=== PATIENT | female | born 1990 | race Caucasian/White ===

== ENCOUNTER 2018-06-02 18:30 | Outpatient (REF) | payer SELFPAY ==
[2018-06-02 19:56] LABS: *AMPHETAMINES SCREEN URINE Negative (Negative); *BARBITURATES SCREEN URINE Negative (Negative); *BENZODIAZEPINES SCREEN URINE Negative (Negative); Cannabinoids THC Negative (Negative); Cocaine Screen,Urine Negative (Negative); METHADONE URINE SCREEN Negative (Negative); OPIATES URINE SCREEN Negative (Negative)
[2018-06-02 19:57] LABS: Tricyclic Antidepressants Negative (Negative)
[2018-06-05 13:38] LABS: Chlamydia Result Negative; GC Result Negative
[2018-06-08 11:03] LABS: Buprenorphine Negative; Norbuprenorphine Negative
== END 2018-06-02 18:50 ==
LOC: LBN 18:30
PROVIDERS: PCP Nurse Practitioner Family; Visit Provider Nurse Practitioner
DX: Z34.91 Encounter for supervision of normal pregnancy, unspecified, first trimester (principal); Z11.3 Encounter for screening for infections with a predominantly sexual mode of transmission
CPT/HCPCS: 80307; 87491; 87591; 87086

== ENCOUNTER 2018-07-13 10:49 | Outpatient (CLI) | payer MEDICAID, SELFPAY ==
[2018-07-13 11:24] LABS: Abs Immature Grans 0.06 k/cumm (0.0-0.09); Absolute Basophil Count 0.03 k/cumm (0.0-0.2); Absolute Eosinophil Count 0.28 k/cumm (0.0-0.7); Absolute Lymphocyte Count 3.04 k/cumm (1.2-3.4); Absolute Monocyte Count 0.95 k/cumm (0.11-0.7); Absolute Neutrophil Count 10.98 k/cumm (1.2-6.7); Basophils % 0.2; Eosinophils % 1.8; HCT 37.5 % (36.0-46.0); HGB 12.9 g/dL (12.0-15.5); Immature Grans % 0.4; Lymphocytes % 19.8; Mean Corp. HGB Concentration 34.4 g/dL (32.0-36.0); Mean Corpuscular Hemoglobin 30.3 pg (27.0-33.0); Monocytes % 6.2; Neutrophils % 71.6; Platelet Count 221 x1000/uL (130-400); RBC 4.26 m/cumm (4.00-5.20); RBC Distribution Width 13.2 % (11.7-14.6); White Blood Cell Count 15.33 k/cumm (4.4-10.8)
[2018-07-13 11:54] LABS: Glucose,1 Hr (Glucola) 86 mg/dL (80-140)
[2018-07-13 12:34] LABS: ALT 19 U/L (12-78); AST 14 U/L (15-37); Albumin 3.2 g/dL (3.4-5.0); Alkaline Phosphatase 53 U/L (46-116); Bilirubin, Direct 0.08 mg/dL (0.00-0.20); Bilirubin, Total 0.2 mg/dL (0.2-1.0); TSH (W/Ref FT4) 1.87 uIU/mL (0.358-3.74); Total Protein 6.3 g/dL (6.4-8.2)
[2018-07-14 09:55] LABS: HIV-1/2 Ag & Ab Screen Negative (NEGAT); Hepatitis B Surface Ag Negative (NEGAT)
[2018-07-14 11:34] LABS: Rubella IgG Ab (UVM) Positive; Syphilis Serology (RPR) Negative (Negative); Varicella IgG Antibody Positive
[2018-07-14 15:14] LABS: Hepatitis C Ab w Rflx HCV PCR Negative (NEGAT)
== END 2018-07-13 11:09 ==
PROVIDERS: PCP Nurse Practitioner Family; Visit Provider Nurse Practitioner
DX: Z34.91 Encounter for supervision of normal pregnancy, unspecified, first trimester (principal); Z11.59 Encounter for screening for other viral diseases; Z01.84 Encounter for antibody response examination; Z11.4 Encounter for screening for human immunodeficiency virus [HIV]; Z11.3 Encounter for screening for infections with a predominantly sexual mode of transmission
CPT/HCPCS: 36415; 80055; 80076; 82950; 86787; 86803; 86850; 86900; 86901; 87340; 87389; 84443; 86592; 86762

== ENCOUNTER 2018-08-21 00:57 | Outpatient (CLI) | payer MEDICAID, SELFPAY ==
--- NOTE | 2018-08-21 14:15 | DI.US_ITS ---
Many abnormalities cannot be diagnosed. A normal exam does not exclude a congenital anomaly. Radiology No. LMP: Exam Date: 08/21/18 [facility] wks days on EDC ([facility]) 12/11/18 Confirmed: HISTORY: SURVEY, .Z34.90 PREDICTED GESTATIONAL AGE NUMBER 19.5 weeks with a range of 18.5 week to 20.5 weeks. 1 Determined by__X_1STUS___LMP___HISTORY Info. pertaining to fetus # PLACENTA PRESENTATION Grade 0-1 Cephalic___ Anterior_X__Posterior___ Breech____ Right Left Transverse(head right___ Fundal___Low-lying___Previa___ Transverse(head left___ Varying___X___ BIOMETRY AMNIOTIC FLUID BPD: 48 mm 20.3 weeks Normal HC: 182 mm 20.4 weeks AC: 152 mm 20.3 weeks FL: 32 mm 19.6 weeks AMNIOTIC FLUID INDEX >26 WK CRL: mm weeks Cisterna Magna: 4 mm CI: 0.8 RUQ: LUQ Cerebellum: 2.1 cm EFW: 347 grams Percentile RLQ: LLQ Total: cms Composite AGE= 20.2 wks EDC by US___01/16/19 BIOPHYSICAL PROFILE ANATOMY IDENTIFIED SCORE 0/2 Heart: 4-Chamber_NS__Rate:BPM__155___ LVOT: NS RVOT:___NS Amniotic Fluid(>2cms)____ Stomach:____X___ Kidneys:___X____ Respirations (>30 secs) Bladder: X_ Post. Fossa:____X Body Flex/Extension 3 vessel cord:___X____Ventricles: X cord insertion:___X__ Lips:__NS WELL__ Extremity Flex/Extension spinal morphology:___X Nose:MS WELL Total Score= Palate:____X___ NS=not seen There is a single living intrauterine gestation. Estimated sonographic age is 20 weeks 2 days. The placenta is anterior without evidence of previa. anatomic evaluation was performed and is unremarkable. The four chamber heart and ventricular outflow tract images cannot adequately be obtained. In addition, the facial features were not well seen. The patient is scheduled to return on 08/29/18 to complete anatomic imaging of the heart and face. Amniotic fluid appears within normal limits. The fetus was in varying positions during the examination. heart rate is 155 beats per minute. IMPRESSION: Single living intrauterine gestation. Estimated sonographic age is 20 weeks 2 days. The patient will return 08/29/18 for completion of the anatomic evaluation with complete imaging of the heart and face.
[2018-08-23 15:53] LABS: AFP 34.8 ng/mL; Calculated age at EDD 30 years; Cigarette smoking status non-smoker; GA used in risk estimate Scan estimate; INHIBIN 282 pg/mL; IVF Pregnancy No; Initial or repeat testing Initial testing; Insulin dependent diabetes No; Maternal Weight 263 lbs; Number of Fetuses 1; Physician Phone Number 802-748-7300; Prev Down(T21)/Trisomy Pregnan No; Prev Pregnancy w/NTD No; RECOMMENDED FOLLOW UP None.; Results Summary Normal risk; hCG, TOTAL 10.5 IU/mL; hCG, TOTAL MoM 0.73 MoM; uE3 1.24 ng/mL; uE3 MoM 0.82 MoM
== END 2018-08-21 01:17 ==
PROVIDERS: Advanced Practice Midwife; PCP Nurse Practitioner Family; Visit Provider Obstetrics & Gynecology
DX: Z34.92 Encounter for supervision of normal pregnancy, unspecified, second trimester (principal); Z36.89 Encounter for other specified antenatal screening
CPT/HCPCS: 36415; 76805; 81511

== ENCOUNTER 2018-08-29 00:27 | Outpatient (CLI) | payer MEDICAID, SELFPAY ==
--- NOTE | 2018-08-29 09:09 | DI.US_ITS ---
Many abnormalities cannot be diagnosed. A normal exam does not exclude a congenital anomaly. Radiology No. LMP: Exam Date: 08/29/18 [facility] wks days on EDC ([facility]) Confirmed: HISTORY: F/U TO COMPLETE SURVEY AND VIEW FACIAL AND CARDIAC PREDICTED GESTATIONAL AGE NUMBER 2 3 Multiple weeks with a range of week to weeks. 1 Determined by___1STUS___LMP___HISTORY Info. pertaining to fetus # PLACENTA PRESENTATION Grade 0-1 Cephalic___ Anterior__X_Posterior___ Breech____ Right Left Transverse(head right___ Fundal___Low-lying___Previa___ Transverse(head left___ Varying BIOMETRY AMNIOTIC FLUID BPD: mm weeks Normal HC: mm weeks AC: mm weeks FL: mm weeks AMNIOTIC FLUID INDEX >26 WK CRL: mm weeks Cisterna Magna: mm CI: RUQ: LUQ Cerebellum: cm EFW: grams Percentile RLQ: LLQ Total: cms Composite AGE= wks EDC by US BIOPHYSICAL PROFILE ANATOMY IDENTIFIED SCORE 0/2 Heart: 4-Chamber_X__Rate:BPM___153__ LVOT:____X RVOT:___X Amniotic Fluid(>2cms)____ Stomach: Kidneys: Respirations (>30 secs) Bladder: Post. Fossa: Body Flex/Extension 3 vessel cord: Ventricles: cord insertion: Lips:___X_ Extremity Flex/Extension spinal morphology: Nose:X Total Score= Palate: X__ NS=not seen There is a single intrauterine gestation. The fetus is in the cephalic presentation. heart rate is 153 beats per minute. The lips, nose and palate are grossly unremarkable. There is limited visualization of the lower lip. There is a normal appearing 4 chamber heart and left and right ventricular outflow tract. Placenta is anterior without evidence of previa.
== END 2018-08-29 00:47 ==
PROVIDERS: PCP Nurse Practitioner Family; Visit Provider Obstetrics & Gynecology
DX: Z34.92 Encounter for supervision of normal pregnancy, unspecified, second trimester (principal); Z36.2 Encounter for other antenatal screening follow-up
CPT/HCPCS: 76815

== ENCOUNTER 2018-10-11 14:30 | Outpatient (CLI) | payer MEDICAID, SELFPAY | END 2018-10-11 14:50 | PROVIDERS: PCP Nurse Practitioner Family; Visit Provider Advanced Practice Midwife | DX: O36.8130 Decreased fetal movements, third trimester, not applicable or unspecified (principal); Z3A.27 27 weeks gestation of pregnancy | CPT/HCPCS: 59025 ==

== ENCOUNTER 2018-10-15 12:23 | Observation (INO) | payer MEDICAID, SELFPAY ==
[2018-10-15 12:44] LABS: ALT 21 U/L (12-78); AST 13 U/L (15-37); Albumin 2.9 g/dL (3.4-5.0); Alkaline Phosphatase 78 U/L (46-116); Bilirubin, Total 0.2 mg/dL (0.2-1.0); Total Protein 6.4 g/dL (6.4-8.2); Uric Acid 5.6 mg/dL (2.6-6.0)
[2018-10-15 12:47] LABS: Bilirubin, Direct < 0.05 mg/dL (0.00-0.20)
[2018-10-15 14:49] LABS: PROTEIN 14.9 mg/dL; Prot/Crea Ur Ratio 0.11
[2018-10-15 14:49] LABS: HCT 36.1 % (36.0-46.0); HGB 12.1 g/dL (12.0-15.5); Mean Corp. HGB Concentration 33.5 g/dL (32.0-36.0); Mean Corpuscular Volume 89.4 fL (80-95); Platelet Count 210 x1000/uL (130-400); RBC 4.04 m/cumm (4.00-5.20); RBC Distribution Width 13.8 % (11.7-14.6); White Blood Cell Count 19.68 k/cumm (4.4-10.8)
== END 2018-10-15 14:59 | disposition home or self-care (01) ==
PROVIDERS: Admitting Provider Advanced Practice Midwife; PCP Nurse Practitioner Family; Visit Provider Advanced Practice Midwife
DX: O12.02 Gestational edema, second trimester (principal); O99.332 Smoking (tobacco) complicating pregnancy, second trimester; F17.210 Nicotine dependence, cigarettes, uncomplicated; O99.342 Other mental disorders complicating pregnancy, second trimester; F99 Mental disorder, not otherwise specified; O99.612 Diseases of the digestive system complicating pregnancy, second trimester; O99.512 Diseases of the respiratory system complicating pregnancy, second trimester; Z3A.27 27 weeks gestation of pregnancy; F32.9 Major depressive disorder, single episode, unspecified; G47.30 Sleep apnea, unspecified; O34.211 Maternal care for low transverse scar from previous cesarean delivery
CPT/HCPCS: 59025; 36415; 80076; 85027; 82565; 84156; 84550; G0378

== ENCOUNTER 2018-10-19 09:17 | Outpatient (CLI) | payer MEDICAID, SELFPAY ==
[2018-10-19 09:49] LABS: HCT 37.1 % (36.0-46.0); HGB 12.1 g/dL (12.0-15.5); Mean Corp. HGB Concentration 32.6 g/dL (32.0-36.0); Mean Corpuscular Hemoglobin 29.2 pg (27.0-33.0); Mean Corpuscular Volume 89.6 fL (80-95); Mean Platelet Volume 11.4 fL (8.0-11.0); Platelet Count 210 x1000/uL (130-400); RBC 4.14 m/cumm (4.00-5.20); RBC Distribution Width 14.1 % (11.7-14.6); White Blood Cell Count 18.27 k/cumm (4.4-10.8)
[2018-10-19 09:58] LABS: Glucose,1 Hr (Glucola) 129 mg/dL (80-140)
== END 2018-10-19 09:37 ==
PROVIDERS: PCP Nurse Practitioner Family; Visit Provider Advanced Practice Midwife
DX: Z34.93 Encounter for supervision of normal pregnancy, unspecified, third trimester (principal)
CPT/HCPCS: 36415; 82950; 85027

== ENCOUNTER 2018-10-27 09:43 | Outpatient (CLI) | payer MEDICAID, SELFPAY ==
[2018-10-27 10:12] LABS: HCT 36.8 % (36.0-46.0); HGB 12.2 g/dL (12.0-15.5); Mean Corp. HGB Concentration 33.2 g/dL (32.0-36.0); Mean Corpuscular Hemoglobin 29.6 pg (27.0-33.0); Mean Corpuscular Volume 89.3 fL (80-95); Mean Platelet Volume 10.8 fL (8.0-11.0); Platelet Count 233 x1000/uL (130-400); RBC 4.12 m/cumm (4.00-5.20); RBC Distribution Width 14.1 % (11.7-14.6)
[2018-10-27 11:19] LABS: ALT 26 U/L (12-78); AST 14 U/L (15-37); Albumin 2.9 g/dL (3.4-5.0); Alkaline Phosphatase 82 U/L (46-116); Bilirubin, Direct 0.06 mg/dL (0.00-0.20); Bilirubin, Total 0.2 mg/dL (0.2-1.0); CREATININE 0.72 mg/dL (0.55-1.02); Total Protein 6.1 g/dL (6.4-8.2); Uric Acid 5.8 mg/dL (2.6-6.0)
[2018-10-27 11:21] LABS: COMMENT (LAB VIEW ONLY) 112.07 mg/dL; PROTEIN 15.7 mg/dL; Prot/Crea Ur Ratio 0.14
== END 2018-10-27 10:03 ==
LOC: LBN 09:44 → LBO 09:53
PROVIDERS: PCP Nurse Practitioner Family; Visit Provider Advanced Practice Midwife
DX: O12.03 Gestational edema, third trimester (principal); R60.9 Edema, unspecified; Z34.93 Encounter for supervision of normal pregnancy, unspecified, third trimester
CPT/HCPCS: 36415; 80076; 85027; 82565; 84156; 84550

== ENCOUNTER 2018-11-11 07:00 | Outpatient (REF) | payer MEDICAID, SELFPAY ==
[2018-11-13 05:16] LABS: PROTEIN 13.1 mg/dL (0.0-11.9)
[2018-11-13 05:22] LABS: TOTAL PROTEIN,URINE TIMED 255.5 mg/24hr (0.0-149.1); Total Volume 1950 ml
== END 2018-11-11 07:20 ==
LOC: LBN 07:00
PROVIDERS: PCP Nurse Practitioner Family; Visit Provider Obstetrics & Gynecology
DX: O13.9 Gestational [pregnancy-induced] hypertension without significant proteinuria, unspecified trimester (principal)
CPT/HCPCS: 81050; 84155

== ENCOUNTER 2018-11-14 00:06 | Outpatient (CLI) | payer MEDICAID, SELFPAY ==
--- NOTE | 2018-11-14 08:23 | DI.US_ITS ---
SYMPTOMS/DIAGNOSIS: HX OF MACROSOMIA, SIZE INCONSISTENT WITH DATES, O26.849 OB ULTRASOUND: Comparison is made with [id number] and 85Onx75. The fetus is in transverse position with the head toward the maternal left. The placenta is anterior and grade II. The biometric measurements correspond to 34 weeks 6 days which is measuring 3 weeks greater than predicted gestational age. The estimated weight is 2536 grams which is greater than the 99th percentile. The amniotic fluid index is 22.5 cm. IMPRESSION: size and weight is above the normal limits for gestational age. Predicted Gestational Age: Indication/History: 31+6 Wks Range: 30+6 Wks to 32+6 Wks Prior US done on: Determined by: First US X LMP History EDC by prior US: 01/10/19 For multiple gestations: Baby PLACENTA: Grade: II Location: Anterior X Posterior PRESENTATION: RT LT LOW LYING PREVIA Cephalic Trans X (Head LT X ) Varied Breech BIOMETRY: Anatomy Identified: BPD: 85 mm 34+1 wks 4 chamber Heart Heart Rate 141 BPM HC: 320 mm 36+0 wks LVOT Post Fossa AC: 316 mm 35+4 wks RVOT Ventricles FL: 66 mm 33+6 wks Stomach Nose Bladder Lips Cisterna Magna: mm CI: 77 Kidneys Palate Cerebellum: mm 3 vessel cord Spine EFW: 2563 grms off charts % Cord Insertion NS= not seen Composite Age (US) 34+6 wks Many abnormalities cannot be diagnosed. A normal exam does not exclude congenital abnormality. EDC by US 12/20/18 Amniotic Fluid Index: Normal COMMENTS: RUQ: 6.98 LUQ: 6.37 RLQ: 5.30 LLQ: 3.84 Total: 22.5 cm Biophysical Profile: Score 0/2 BIPIN (>2cm) Respirations (>30 sec) Body flexion/extension Extremity flexion/extension TOTAL SCORE Measuring 3 wks ahead. Off charts in weight 2563 grams, 5 lbs, 10 oz.
== END 2018-11-14 00:26 ==
PROVIDERS: PCP Nurse Practitioner Family; Visit Provider Advanced Practice Midwife
DX: O26.843 Uterine size-date discrepancy, third trimester (principal); Z87.59 Personal history of other complications of pregnancy, childbirth and the puerperium
CPT/HCPCS: 76816

== ENCOUNTER 2018-12-08 09:52 | Outpatient (REF) | payer MEDICAID, SELFPAY | END 2018-12-08 10:12 | LOC: LBN 09:52 | PROVIDERS: PCP Nurse Practitioner Family; Visit Provider Obstetrics & Gynecology | DX: R35.0 Frequency of micturition (principal); Z34.90 Encounter for supervision of normal pregnancy, unspecified, unspecified trimester | CPT/HCPCS: 87081; 87086 ==

== ENCOUNTER 2018-12-15 01:34 | Outpatient (CLI) | payer MEDICAID, SELFPAY ==
--- NOTE | 2018-12-15 08:40 | DI.US_ITS ---
SYMPTOM/DIAGNOSIS: EFW, HISTORY OF MACROSOMIA O09.299 OBSTETRICAL ULTRASOUND: Routine examination was performed. There is a single living intrauterine gestation. Estimated sonographic age is 39 weeks 2 days. The fetus lies with the head to the right. heart rate is 135 BPM. A complete anatomic evaluation was not performed at this time. Estimated weight is 4036 grams which is above the 95th percentile Amniotic fluid index is 23.8 cm Visually the amniotic fluid appears within normal limits. The placenta is anterior without evidence of previa. IMPRESSION: Single living intrauterine gestation. Estimated gestational age is 39 weeks 2 days. Please see the above discussion for complete details. Predicted Gestational Age: Indication/History: 36 +2 Wks Range: 35 +2 to 37 +2 Prior US done on: 11/14/18 Determined by: XX First US LMP History EDC by prior US: 12/20/18 For multiple gestations: Baby PLACENTA: Grade: II Location: XX Anterior Posterior PRESENTATION: RT LT LOW LYING PREVIA Cephalic Trans XX (Head RT ) Varied Breech BIOMETRY: Anatomy Identified: BPD: 94 mm 38 +3 wks 4 chamber Heart Heart Rate 135 BPM HC: 339 mm 39 +0 wks LVOT Post Fossa AC: 379 mm 41 +6 wks RVOT Ventricles FL: 74 mm 37 +6 wks Stomach XX Nose Bladder XX Lips Cisterna Magna: mm CI: 83 Kidneys Palate Cerebellum: mm 3 vessel cord Spine EFW: 4036 gms % OFF CHARTS Cord Insertion NS= not seen Composite Age (US) 39 +2 wks Many abnormalities cannot be diagnosed. A normal exam does not exclude congenital abnormality. EDC by US 12/20/18 Amniotic Fluid Index: UPPER LIMITS Normal COMMENTS: RUQ: 7.43 LUQ: 3.08 RLQ: 4.14 LLQ: 9.11 Total: 23.8 cm Biophysical Profile: Score 0/2 BIPIN (>2cm) Respirations (>30 sec) Body flexion/extension Extremity flexion/extension TOTAL SCORE
== END 2018-12-15 01:54 ==
PROVIDERS: PCP Nurse Practitioner Family; Visit Provider Obstetrics & Gynecology
DX: O09.293 Supervision of pregnancy with other poor reproductive or obstetric history, third trimester (principal); Z36.88 Encounter for antenatal screening for fetal macrosomia; Z34.93 Encounter for supervision of normal pregnancy, unspecified, third trimester
CPT/HCPCS: 80307; 76805

== ENCOUNTER 2018-12-15 14:24 | Outpatient (REF) | payer MEDICAID, SELFPAY ==
[2018-12-15 15:20] LABS: *AMPHETAMINES SCREEN URINE Negative (Negative); *BARBITURATES SCREEN URINE Negative (Negative); *BENZODIAZEPINES SCREEN URINE Negative (Negative); Cannabinoids THC Negative (Negative); Cocaine Screen,Urine Negative (Negative); METHADONE URINE SCREEN Negative (Negative); OPIATES URINE SCREEN Negative (Negative)
[2018-12-15 15:31] LABS: Tricyclic Antidepressants Negative (Negative)
[2018-12-20 11:35] LABS: Buprenorphine Negative; Norbuprenorphine Negative
== END 2018-12-15 14:44 ==
LOC: LBN 14:24
PROVIDERS: PCP Nurse Practitioner Family; Visit Provider Obstetrics & Gynecology
DX: Z34.93 Encounter for supervision of normal pregnancy, unspecified, third trimester (principal)
CPT/HCPCS: 80307

== ENCOUNTER 2018-12-24 02:12 | Outpatient (CLI) | payer MEDICAID, SELFPAY ==
[2018-12-24 10:19] LABS: Absolute Basophil Count 0.03 k/cumm (0.0-0.2); Absolute Eosinophil Count 0.21 k/cumm (0.0-0.7); Absolute Monocyte Count 0.94 k/cumm (0.11-0.7); Absolute Neutrophil Count 12.71 k/cumm (1.2-6.7); Basophils % 0.2; Eosinophils % 1.2; HCT 37.1 % (36.0-46.0); HGB 12.1 g/dL (12.0-15.5); Immature Grans % 0.6; Lymphocytes % 18.2; Mean Corp. HGB Concentration 32.6 g/dL (32.0-36.0); Mean Corpuscular Hemoglobin 29.2 pg (27.0-33.0); Mean Corpuscular Volume 89.6 fL (80-95); Mean Platelet Volume 11.1 fL (8.0-11.0); Monocytes % 5.5; Neutrophils % 74.3; Platelet Count 302 x1000/uL (130-400); RBC 4.14 m/cumm (4.00-5.20); RBC Distribution Width 14.5 % (11.7-14.6); White Blood Cell Count 17.11 k/cumm (4.4-10.8)
[2018-12-24 10:20] LABS: Absolute Lymphocyte Count 3.11 k/cumm (1.2-3.4)
[2018-12-24 10:50] LABS: ALT 30 U/L (12-78); AST 21 U/L (15-37); Albumin 2.7 g/dL (3.4-5.0); Alkaline Phosphatase 140 U/L (46-116); BUN 6 mg/dL (7-18); Bilirubin, Total 0.3 mg/dL (0.2-1.0); CREATININE 0.73 mg/dL (0.55-1.02); Calcium 9.1 mg/dL (8.5-10.1); Chloride 104 mmol/L (98-107); Glucose 144 mg/dL (70-100); Potassium 3.9 mmol/L (3.5-5.1); Sodium 140 mmol/L (136-145)
== END 2018-12-24 02:32 ==
PROVIDERS: PCP Nurse Practitioner Family; Visit Provider Obstetrics & Gynecology
DX: O13.9 Gestational [pregnancy-induced] hypertension without significant proteinuria, unspecified trimester (principal); Z34.90 Encounter for supervision of normal pregnancy, unspecified, unspecified trimester
CPT/HCPCS: 36415; 80053; 81050; 84155; 85025

== ENCOUNTER 2018-12-24 10:03 | Outpatient (CLI) | payer MEDICAID, SELFPAY | END 2018-12-24 10:23 | PROVIDERS: PCP Nurse Practitioner Family; Visit Provider Obstetrics & Gynecology | DX: O13.3 Gestational [pregnancy-induced] hypertension without significant proteinuria, third trimester (principal); Z3A.37 37 weeks gestation of pregnancy | CPT/HCPCS: 36415; 80053; 59025; 81050; 84155; 85025 ==

== ENCOUNTER 2018-12-24 10:33 | Outpatient (REF) | payer MEDICAID, SELFPAY ==
[2018-12-24 11:22] LABS: Total Volume 2700 ml
== END 2018-12-24 10:53 ==
LOC: LBN 10:33
PROVIDERS: PCP Nurse Practitioner Family; Visit Provider Obstetrics & Gynecology
DX: Z34.90 Encounter for supervision of normal pregnancy, unspecified, unspecified trimester (principal); O13.9 Gestational [pregnancy-induced] hypertension without significant proteinuria, unspecified trimester
CPT/HCPCS: 81050; 84155

== ENCOUNTER 2018-12-26 13:33 | Outpatient (CLI) | payer MEDICAID, SELFPAY | END 2018-12-26 13:53 | PROVIDERS: PCP Nurse Practitioner Family; Visit Provider Obstetrics & Gynecology | DX: O34.219 Maternal care for unspecified type scar from previous cesarean delivery (principal); Z01.818 Encounter for other preprocedural examination ==

== ENCOUNTER 2018-12-26 15:03 | Outpatient (CLI) | payer MEDICAID, SELFPAY ==
[2018-12-26 15:29] LABS: HCT 37.7 % (36.0-46.0); HGB 12.2 g/dL (12.0-15.5); Mean Corp. HGB Concentration 32.4 g/dL (32.0-36.0); Mean Corpuscular Hemoglobin 28.8 pg (27.0-33.0); Mean Corpuscular Volume 88.9 fL (80-95); Mean Platelet Volume 10.7 fL (8.0-11.0); Platelet Count 298 x1000/uL (130-400); RBC 4.24 m/cumm (4.00-5.20); RBC Distribution Width 14.5 % (11.7-14.6); White Blood Cell Count 19.39 k/cumm (4.4-10.8)
== END 2018-12-26 15:23 ==
PROVIDERS: PCP Nurse Practitioner Family; Visit Provider Obstetrics & Gynecology
DX: Z01.818 Encounter for other preprocedural examination (principal); O34.219 Maternal care for unspecified type scar from previous cesarean delivery; Z01.812 Encounter for preprocedural laboratory examination
CPT/HCPCS: 36415; 85027; 86850; 86900; 86901

== ENCOUNTER 2018-12-27 06:17 | Inpatient (IN) | payer MEDICAID, SELFPAY ==
--- NOTE | 2018-12-26 12:52 | W.PM.HP.N ---
Assessment and Plan (1) Preeclampsia: Current visit: Yes Status: Acute (2) Term : Current visit: Yes Status: Acute meets criteria for preeclampsia >37 weeks BP trending upward +# edema LGA Plan RCS R/B/A reviewed consents signed History of Present Illness Chief Complaint: preeclampsia Narrative: 30 37.4 elevated BP edema and 24 urine protein 337 plan for RCS LGA Review of Systems Review of Systems All systems reviewed & are unremarkable except as noted in HPI and below PFSH Medical History RAJ (obstructive sleep apnea) (Chronic) History of macrosomia in infant in prior , currently (Acute) BMI 38.0-38.9,adult (Acute) PCOS (polycystic ovarian syndrome) (Chronic) Surgical History History of delivery, currently (Acute) Family History Mother Neoplasm Asthma Father No problems noted. Sister Depression Asthma Brother Depression Grandfather Personal history of malignant neoplasm Grandfather Emphysema lung Grandmother Personal history of malignant neoplasm Depression Grandmother No problems noted. Son No problems noted. Daughter No problems noted. FAMILY HISTORY Polycystic ovaries Social History Smoking/Tobacco Use Status: Former Tobacco Use Alcohol Intake: never Drug use: Never Household members: spouse, children and other Details: Kolby 11 years old, Carrielle years old Number of Children: 1 Do you feel safe in your relationship?: Yes History History 3 Para 1 Hx # Term Pregnancies 1 Multiple births 0 Hx # Pregnancies 0 Ectopic pregnancies 0 AB induced 0 Hx Number of Living Children 1 AB spontaneous 1 Past Pregnancies Del. Date GA/Weeks # Outcome Route Wgt Sex Labor Lgth Anesthesia Location Prov Complic Unknown 08/25/11 40 Yes Successful 4.933 kg Female [place] Delivery Date: 08/25/11 On 06/02/18 @ 14:21 Katey Almeida LGA, C section d/t this Delivery Date: On 10/18/18 @ 09:20 Nava [place] scheduled C/S for LGA Meds Home Medications Medication Instructions Recorded Confirmed Type omeprazole 20 mg tablet,delayed 20 mg PO DAILY #90 tab-cap 06/19/18 12/26/18 Rx release aspirin 81 mg chewable tablet 81 mg PO DAILY 07/21/18 12/26/18 History docusate sodium 100 mg capsule 100 mg PO BID #60 cap 08/09/18 12/26/18 Rx vitamin with calcium 1 tab PO DAILY #90 tab 08/09/18 12/26/18 Rx no.72-iron 27 mg-folic acid 1 mg tablet Allergies Allergy/AdvReac Type Severity Reaction Status Date / Time No Known Allergies Allergy Unverified 12/26/18 12:50 Exam Narrative Exam Narrative: BP 140/83 Const General: cooperative Other: facial and hand edema +3 pedal edema Chest Chest: normal inspection of the chest Resp Effort & Inspection: normal respiratory effort Auscultation: clear to auscultation bilaterally Cardio Rate: regular rate Rhythm: regular rhythm Heart Sounds: S1 normal and S2 normal GI Other: gravid NT S>D EFW 11# Results Labs PIH labs 12/25 WNL 24 hour protein 337gm
[2018-12-27 06:29] VITALS: BP 122/69; PULSE 88; RESP 18; TEMP 36.7; O2SAT 98
[2018-12-27 06:34] VITALS: BP 122/69; PULSE 88; RESP 18; TEMP 36.7; O2SAT 98
[2018-12-27] MEDS: Lactated Ringers 1,000 ML 125 ML IV (06:45)
[2018-12-27] MEDS: ceFAZolin 3,000 MG in Normal Saline 100 ML 200 MG IVPB (07:54)
--- NOTE | 2018-12-27 08:03 | HOME_ITS ---
Home Ventilator Equipment Home care company [facility] Reason: Obstructive Sleep Apnea Make: Respironics Model: Dreamstation Mask type: Nasal mask Mask size: Small Mode: CPAP Settings: Max/min 18/12 Oxygen bleed in (lpm): 0 Condition: Good Date last checked: 12/27/18 Year of last sleep study: Compliance Comments:
--- NOTE | 2018-12-27 08:53 | FALL_PTH ---
PATIENT: Zaida Davies LOC: OBS U#:[id number] AGE/SX: 28/F ROOM: OBS.304 RE12/27/[address]: Preston Park MD : 1990 BED: A DIS: 12/30/2018 SPEC #: [id number] RECD: 12/27/18 12:43 STATUS: BORIS REQ #: [id number] JACKIE: 12/27/18 08:[address]: Preston Park DEPT: Surgical Specimen RECD BY: Yi Varela ENTERED: 12/27/18 12:45 SP TYPE: Fall OTHR DR: NIRANJAN Real Tissues: 1 - FALLOPIAN TUBE (STERILIZATION) 2 - FALLOPIAN TUBE (STERILIZATION) Procedures: GROSS AND MICRO LEVEL 2 Comments: [id number]
[2018-12-27] MEDS: Droperidol 5 MG/2 ML VIAL 0.625 MG IVP (12:47)
[2018-12-27] MEDS: Normal Saline Flush 10 ML SYR IVP ×2 (15:45→22:30)
--- NOTE | 2018-12-27 16:21 | W.PM.OP ---
Date of service: 12/27/18 Time of Service: 16:22 Operative Note DATE OF PROCEDURE: 12/27/18 PRE-OP DIAGNOSIS: 38 weeks. Mild preeclampsia. Prior section. Sterilization POST-OP DIAGNOSIS: same PROCEDURE: 1. Repeat low transverse section 2. Bilateral salpingectomy SURGEON: Preston Park ASSISTING SURGEON: Melony Barroso ANESTHESIA: spinal ESTIMATED BLOOD LOSS: 700 PATHOLOGY: other (Bilateral fallopian tubes) COMPLICATIONS: None Patient was transported to: PACU Patient's condition: stable Findings: 1. Delivered a liveborn male infant weighing 9 pounds 1 ounce with score of 9,9 2. Normal uterus, tubes and ovaries Procedure Description: The patient was taken to the operating room and after an adequate level of spinal anesthesia was obtained the patient was placed in the supine position with a left lateral tilt and was prepped and draped in usual sterile manner. A Pfannenstiel skin incision was then made through the previous incision and sharp dissection was carried down to the underlying layer fascia. The fascia was incised in the midline and the incision was extended laterally in either direction with Mcdowell scissors. The superior and inferior aspects of the fascial incision were dissected off the underlying layer rectus muscles using both blunt and sharp dissection. The rectus muscles were divided along the linea alba. Peritoneum was entered sharply and the peritoneal incision was extended superiorly and inferiorly with blunt and sharp dissection. The vesicouterine flap was incised in the midline with Metzenbaum scissors and the bladder flap was then digitally. The lower uterine segment was incised with a scalpel and the incision was extended laterally in either direction via stretch. The was found in cephalic presentation and delivered atraumatically with a forceps assist. Mouth and nose were suctioned. The cord was clamped and cut. The infant was handed off to the waiting steel die engraver. The placenta was manually extracted. The uterus was cleared of all clots and debris. The hysterotomy was closed with a running lock stitch of #1 chromic in a second indicating layer of #1 chromic to obtain hemostasis. The vesicouterine flap was repaired with a running suture of 0 Vicryl. The right fallopian tube was grasped and elevated with a Mohsen clamp. Dissection across the mesosalpinx was taken with the LigaSure device and taken to the proximal fallopian tube which was transected. A similar procedure was carried out on the opposite side. The peritoneum was closed with a running stitch of 2-0 Vicryl. The subfascial space was thoroughly inspected and limited use of the Bovie cautery was used to obtain hemostasis. The fascia was closed with a running stitch of 0 Vicryl. The subcutaneous tissues were closed in 2 layers of 3-0 Vicryl. The skin was closed with a running subcuticular stitch of 4 Monocryl and Dermabond applied. The procedure was concluded at this point. Sponge lap needle counts were correct at the conclusion of the procedure and the patient was transferred to PACU in stable condition.
[2018-12-27] MEDS: Ketorolac 30 MG/ML VIAL IVP ×2 (17:01→22:29)
[2018-12-28 07:15] LABS: HCT 33.5 % (36.0-46.0); HGB 10.9 g/dL (12.0-15.5); Mean Corp. HGB Concentration 32.5 g/dL (32.0-36.0); Mean Corpuscular Hemoglobin 29.1 pg (27.0-33.0); Mean Corpuscular Volume 89.6 fL (80-95); Platelet Count 262 x1000/uL (130-400); RBC 3.74 m/cumm (4.00-5.20); RBC Distribution Width 14.5 % (11.7-14.6); White Blood Cell Count 23.85 k/cumm (4.4-10.8)
[2018-12-28] MEDS: oxyCODONE 5 mg/Acetaminophen 325 mg TAB PO ×3 (08:03→23:20)
[2018-12-28] MEDS: Ibuprofen 600 MG TAB PO (12:16)
[2018-12-28] MEDS: Acetaminophen 325 MG TAB 650 MG PO (12:16)
[2018-12-29] MEDS: oxyCODONE 5 mg/Acetaminophen 325 mg TAB PO ×2 (05:45→20:43)
[2018-12-29] MEDS: Ibuprofen 600 MG TAB PO ×2 (11:09→16:29)
[2018-12-29] MEDS: Docusate Sodium 100 MG CAP PO (20:43)
[2018-12-30] MEDS: Ibuprofen 600 MG TAB PO ×2 (06:10→13:33)
[2018-12-30] MEDS: oxyCODONE 5 mg/Acetaminophen 325 mg TAB PO ×2 (06:10→13:30)
[2018-12-30 10:49] LABS: HCT 33.7 % (36.0-46.0); HGB 10.7 g/dL (12.0-15.5); Mean Corp. HGB Concentration 31.8 g/dL (32.0-36.0); Mean Corpuscular Hemoglobin 28.5 pg (27.0-33.0); Mean Corpuscular Volume 89.9 fL (80-95); Mean Platelet Volume 10.9 fL (8.0-11.0); Platelet Count 276 x1000/uL (130-400); RBC 3.75 m/cumm (4.00-5.20); RBC Distribution Width 14.3 % (11.7-14.6); White Blood Cell Count 12.14 k/cumm (4.4-10.8)
== END 2018-12-30 17:00 | disposition home or self-care (01) | DRG 784 ==
LOC: PDS 06:30 → OBS 09:53
PROVIDERS: Obstetrics & Gynecology Gynecology; Admitting Provider Obstetrics & Gynecology; PCP Nurse Practitioner Family; Visit Provider Obstetrics & Gynecology
PROC: 10D00Z1 Extraction of Products of Conception, Low, Open Approach (ICD-10-PCS; CPT 59514; principal; 2018-12-27 07:30)
PROC: 10D00Z1 Extraction of Products of Conception, Low, Open Approach (ICD-10-PCS; CPT 58605; 2018-12-27 07:30)
DX: O14.94 Unspecified pre-eclampsia, complicating childbirth (principal); Z37.0 Single live birth; O99.354 Diseases of the nervous system complicating childbirth; Z3A.37 37 weeks gestation of pregnancy; Z30.2 Encounter for sterilization; G47.33 Obstructive sleep apnea (adult) (pediatric)
CPT/HCPCS: 59514; 58611; 36415; 85027; NC; 88302; J0690; J1790; J1885; J2310; J2370; J2405; J2590; J3010; J3490

== ENCOUNTER 2019-01-09 18:39 | Outpatient (REF) | payer MEDICAID, SELFPAY | END 2019-01-09 18:59 | LOC: LBN 18:39 | PROVIDERS: PCP Nurse Practitioner Family; Visit Provider Obstetrics & Gynecology | DX: R30.0 Dysuria (principal) | CPT/HCPCS: 87086 ==

== ENCOUNTER 2019-03-28 12:09 | Outpatient (CLI) | payer MEDICAID, SELFPAY ==
--- NOTE | 2019-03-28 11:38 | DI.RAD_ITS ---
EXAM: XR FOOT RT COMPLETE INDICATION: initial evaluation. COMPARISON: No exams were available for comparison TECHNIQUE: 2D digital imaging was performed. FINDINGS: The bony structures are normally mineralized. The joint spaces are intact. Note is made of a small ca lcaneal spur. There is no evidence a fracture or dislocation.
== END 2019-03-28 12:29 ==
PROVIDERS: PCP Nurse Practitioner Family; Visit Provider Student in an Organized Health Care Education/Training Program
DX: M77.41 Metatarsalgia, right foot (principal); M77.31 Calcaneal spur, right foot
CPT/HCPCS: 73630

== ENCOUNTER 2019-08-15 19:28 | Outpatient (REF) | payer SELFPAY ==
[2019-08-15 19:14] LABS: Bilirubin Negative (Negative); Blood Trace-intact (Negative); Clarity Clear (Clear); Glucose Negative (Negative); Ketones Negative (Negative); Leukocyte Esterase Small (Negative); Nitrite Negative (Negative); Specific Gravity 1.025 (1.005-1.025); Urobilinogen 0.2 EU/dL (Up TO 0.2); pH 6.5 (5-8)
[2019-08-15 19:29] LABS: Bacteria Many HPF (Negative); C & S Indicated? C&S Done As Ordered; Casts Negative LPF (Negative); Crystals Few Amorphous HPF (Negative); Epithelial Cells Many HPF (Negative); Mucus Negative (Negative); RBC Negative HPF (0-2); WBC 20-50 HPF (0-5)
== END 2019-08-15 19:48 ==
LOC: LBN 19:28
PROVIDERS: PCP Nurse Practitioner Family; Visit Provider Advanced Practice Midwife
DX: R30.0 Dysuria (principal)
CPT/HCPCS: 81003; 81015; 87086

== ENCOUNTER 2020-03-03 16:19 | Outpatient (REF) | payer SELFPAY ==
[2020-03-11 10:16] LABS: Misc Referral (VDH) See Comments
== END 2020-03-03 16:39 ==
LOC: LBN 16:19
PROVIDERS: PCP Nurse Practitioner Family; Visit Provider Obstetrics & Gynecology
DX: R10.9 Unspecified abdominal pain (principal); R19.7 Diarrhea, unspecified
CPT/HCPCS: 87505; 87086; 87324

== ENCOUNTER 2020-03-06 11:29 | Outpatient (CLI) | payer SELFPAY ==
[2020-03-06 12:25] LABS: Abs Immature Grans 0.05 10^3/uL (0.0-0.06); Absolute Basophil Count 0.05 10^3/uL (0.0-0.2); Absolute Eosinophil Count 0.06 10^3/uL (0.0-0.7); Absolute Lymphocyte Count 1.59 10^3/uL (1.2-3.4); Absolute Monocyte Count 0.76 10^3/uL (0.1-0.8); Absolute Neutrophil Count 4.23 10^3/uL (1.2-6.7); Basophils % 0.7; Eosinophils % 0.9; HCT 39.9 % (36.0-46.0); HGB 13.7 g/dL (11.2-15.7); Immature Grans % 0.7; Lymphocytes % 23.6; MCH 28.9 pg (27.0-33.0); MCHC 34.3 % (32.0-36.0); MCV 84.2 fL (80-95); MPV 11.1 fL (8.0-11.0); Monocytes % 11.3; Neutrophils % 62.8; Nucleated RBC 0 %; Platelet Count 229 10^3/uL (130-400); RBC 4.74 10^6/uL (3.93-5.22); RDW 12.9 % (11.7-14.6); RDW-SD 39.6 fL; WBC 6.74 10^3/uL (4.4-10.8)
[2020-03-06 13:02] LABS: ALT 50 U/L (14-59); AST 19 U/L (15-37); Albumin 3.5 g/dL (3.4-5.0); Alkaline Phosphatase 71 U/L (46-116); Anion Gap 9.1 mmol/L (3-11); BUN 12 mg/dL (7-18); Bilirubin, Total 0.5 mg/dL (0.2-1.0); CO2 24.9 mmol/L (21.0-32.0); CREATININE 0.79 mg/dL (0.55-1.02); Calcium 8.5 mg/dL (8.5-10.1); Chloride 106 mmol/L (98-107); Glucose 83 mg/dL (74-106); Potassium 3.8 mmol/L (3.5-5.1); Sodium 140 mmol/L (136-145); Total Protein 6.4 g/dL (6.4-8.2)
[2020-03-07 10:29] LABS: Hep A Total Ab w Rflx IgM Negative (Negative)
== END 2020-03-06 11:49 ==
PROVIDERS: PCP Nurse Practitioner Family; Visit Provider Nurse Practitioner Family
DX: R19.7 Diarrhea, unspecified (principal)
CPT/HCPCS: 36415; 80053; 86709; 85025

== ENCOUNTER 2020-09-19 16:19 | Outpatient (REF) | payer SELFPAY | END 2020-09-19 16:20 | disposition home or self-care (01) | LOC: LBN 16:19 | PROVIDERS: PCP Nurse Practitioner Family; Visit Provider Nurse Practitioner Family | DX: R10.2 Pelvic and perineal pain (principal) | CPT/HCPCS: 87077; 87086; 87186 ==

== ENCOUNTER 2021-02-13 17:01 | Outpatient (REF) | payer SELFPAY | END 2021-02-13 17:02 | disposition home or self-care (01) | LOC: LBN 17:01 | PROVIDERS: PCP Nurse Practitioner Family; Visit Provider Obstetrics & Gynecology Gynecology | DX: N89.8 Other specified noninflammatory disorders of vagina (principal) | CPT/HCPCS: 87070; 87205 ==

== ENCOUNTER 2021-03-17 01:38 | Outpatient (CLI) | payer SELFPAY ==
[2021-03-17 09:05] LABS: HCT 43.8 % (36.0-46.0); HGB 14.7 g/dL (11.2-15.7); MCH 29.5 pg (27.0-33.0); MCHC 33.6 % (32.0-36.0); MPV 10.6 fL (8.0-11.0); Platelet Count 210 10^3/uL (130-400); RBC 4.98 10^6/uL (3.93-5.22); RDW 12.6 % (11.7-14.6); RDW-SD 40.9 fL; WBC 12.91 10^3/uL (4.4-10.8)
[2021-03-17 10:38] LABS: Anion Gap 10.2 mmol/L (3-11); BUN 14 mg/dL (7-18); CO2 26.8 mmol/L (21.0-32.0); CREATININE 0.9 mg/dL (0.55-1.02); Calcium 9.2 mg/dL (8.5-10.1); Chloride 106 mmol/L (98-107); Glucose 97 mg/dL (74-106); Potassium 4.1 mmol/L (3.5-5.1); Sodium 143 mmol/L (136-145)
[2021-03-17 10:42] LABS: HCG Qual (Serum) Negative
[2021-03-17 11:15] LABS: Source Nasal/Nares
[2021-03-17 14:14] LABS: COVID-19 PCR Negative (Negative)
== END 2021-03-17 01:39 | disposition home or self-care (01) ==
LOC: LBO 01:38
PROVIDERS: PCP Nurse Practitioner Family; Visit Provider Obstetrics & Gynecology Gynecology
DX: N89.8 Other specified noninflammatory disorders of vagina (principal); Z20.822 Contact with and (suspected) exposure to COVID-19; Z01.818 Encounter for other preprocedural examination; Z01.812 Encounter for preprocedural laboratory examination
CPT/HCPCS: 36415; 80048; 85027; 86850; 86900; 86901; 87635; 84703

== ENCOUNTER 2021-03-19 06:20 | Day surgery (SDC) | payer SELFPAY ==
[2021-03-19] VITALS (10 sets, daily range): BP systolic 105–138; BP diastolic 43–62; PULSE 58–73; RESP 16–23; TEMP 36.2–36.5; O2SAT 92–98; BMI 43.1
--- NOTE | 2021-03-19 07:03 | ANES.PREOP_ITS ---
General Info Date of Service Date Performed: 03/19/21 Height: 5 ft 7 in Weight: 125 kg Body Mass Index (BMI): 43.1 Surgical Procedure: Operation Date: 03/19/21 07:40 Proposed Procedures Side Surgeon p Exc Vaginal Mass Jessica Palma MD Meds Allergies and Home Medications Allergies Allergy/AdvReac Type Severity Reaction Status Date / Time No Known Allergies Allergy Verified 03/19/21 06:30 Home Medication Medication Instructions Recorded ibuprofen 600 mg tablet 600 mg PO QID PRN #30 tab 12/30/18 meclizine 25 mg tablet 25 mg PO TID PRN #90 tab 05/17/19 oxygen-air delivery systems #1 03/12/21 omeprazole 20 mg PO HS 03/17/21 sertraline 75 mg PO HS 03/17/21 Current Visit Medications: Current Medications Generic Name Dose Route Start Last Admin Trade Name Freq PRN Reason Stop Dose Admin Ringer's Solution 1,000 mls @ 125 mls/hr 03/19/21 06:00 IV 04/17/21 23:59 INFUSION SMIELY Cefazolin Sodium 2,000 mg/ 100 mls @ 200 mls/hr 03/19/21 06:00 Sodium Chloride IVPB 03/19/21 16:00 PREOP SMILEY IV Miscellaneous Supplies 1 each 03/19/21 06:00 Iv Access IV 04/17/21 23:59 DIRECTED SMILEY Sodium Chloride 0 ml 03/19/21 06:00 Normal Saline Flush 10 Ml Syr IV 04/17/21 23:59 PRN PRN Sodium Chloride 0 ml 03/19/21 06:00 Normal Saline 10 Ml Vial IJ 04/17/21 23:59 DIRECTED PRN Sterile Water 0 ml 03/19/21 06:00 Water,Injection,Sterile 10 Ml Vial IJ 04/17/21 23:59 DIRECTED PRN PFSH Active Problems Active Problems: Problem Status Onset Code Metatarsalgia of both feet M77.41, M77.42 Plantar fasciitis, bilateral M72.2 Abdominal pain R10.9 Campylobacter diarrhea A04.5 Mastalgia N64.4 Missed menses N92.6 Mass of vagina N89.8 Mastitis N61.0 Watery diarrhea R19.7 BPPV (benign paroxysmal positional vertigo) H81.10 HARRIS (nonalcoholic steatohepatitis) K75.81 Generalized anxiety disorder F41.1 Major depressive disorder F32.9 GERD (gastroesophageal reflux disease) K21.9 RAJ (obstructive sleep apnea) G47.33 PCOS (polycystic ovarian syndrome) Medical History Medical History BPPV (benign paroxysmal positional vertigo) Generalized anxiety disorder GERD (gastroesophageal reflux disease) Herpes labialis Major depressive disorder pt. denies this Mass of vagina Mastitis HARRIS (nonalcoholic steatohepatitis) RAJ (obstructive sleep apnea) PSG 08/22/18, w/CPAP PCOS (polycystic ovarian syndrome) Watery diarrhea Surgical History Surgical History History of section (12/27/18) 2011 and 12/27/18 Status post bilateral salpingectomy (12/27/18) Tobacco Smoking/Tobacco Use Status: Current every day Tobacco Type: cigarettes Tobacco: How many years used: 10 Alcohol Alcohol Intake: never Substance Use Substance use: Never Substance use type: does not use Prental History History 3 Para 2 Hx # Term Pregnancies 2 Multiple births 0 Hx # Pregnancies 0 Ectopic pregnancies 0 AB induced 0 Hx Number of Living Children 2 AB spontaneous 1 Past Pregnancies Del. Date GA/Weeks # Outcome Route Wgt Sex Labor Lgth Anesthes ia Location Prov Complic Unknown 08/25/11 40 Yes Successful 4932.817 g Female [facility] 12/27/18 39 No Successful 4110.681 g Male [facility] Preston Park MD Delivery Date: scheduled C/S for LGA [place] Delivery Date: 08/25/11 LGA, C section d/t this Jam Almeidaen Delivery Date: 12/27/18 No notes to display Vital Signs and Lab Results Vital Signs Most Recent Vital Signs in EMR: Most Recent Vital Signs Temp Pulse Resp BP Pulse Ox 36.5 C 65 18 109/62 98 03/19/21 06:38 03/19/21 06:38 03/19/21 06:38 03/19/21 06:38 03/19/21 06:38 Lab Results Blood Type / Crossmatch: Patient ABO/Rh O Positive 03/17/21 08:55 03/17/21 Antibody Screen NEGATIVE 03/17/21 08:55 03/17/21 Complete Blood Count: White Blood Count 12.91 10^3/uL (4.4-10.8) H 03/17/21 08:55 03/17/21 Red Blood Count 4.98 10^6/uL (3.93-5.22) 03/17/21 08:55 03/17/21 Hemoglobin 14.7 g/dL (11.2-15.7) 03/17/21 08:55 03/17/21 Hematocrit 43.8 % (36.0-46.0) 03/17/21 08:55 03/17/21 Platelet Count 210 10^3/uL (130-400) 03/17/21 08:55 03/17/21 Complete Metabolic Panel: Sodium Level 143 mmol/L (136-145) 03/17/21 08:55 03/17/21 Potassium Level 4.1 mmol/L (3.5-5.1) 03/17/21 08:55 03/17/21 Chloride Level 106 mmol/L (98-107) 03/17/21 08:55 03/17/21 Carbon Dioxide Level 26.8 mmol/L (21.0-32.0) 03/17/21 08:55 03/17/21 Blood Urea Nitrogen 14 mg/dL (7-18) 03/17/21 08:55 03/17/21 Creatinine 0.9 mg/dL (0.55-1.02) 03/17/21 08:55 03/17/21 Estimated GFR/1.73 m2 >= 60.00 (mL/min/1.73m2) 03/17/21 08:55 03/17/21 Calcium Level 9.2 mg/dL (8.5-10.1) 03/17/21 08:55 03/17/21 Glucose Level 97 mg/dL (74-106) 03/17/21 08:55 03/17/21 Liver Function Panel: No Data to Display Coagulation Panel: No Data to Display Cardiac Panel: No Data to Display Arterial Blood Gas: No Data to Display Venous Blood Gas: No Data to Display Pancreas Panel: No Data to Display Thyroid Panel: No Data to Display Infectious Disease: Coronavirus (COVID-19)(PCR) Negative (Negative) 03/17/21 08:59 03/17/21 Coronavirus 2019 Source Nasal/Nares 03/17/21 08:59 03/17/21 Blood Cultures: No Data to Display Toxicology Panel: No Data to Display Panel: Serum HCG, Qualitative Negative 03/17/21 08:55 03/17/21 Anesthesia Assessment and Plan Anesthesia History Personal History: No History of Anesthesia Complications Family History: No Family History of Anesthesia Complications Exercise Tolerance Exercise Tolerance: Metabolic Equivalents>4 Pertinent Negatives Pertinent Negatives: No Symptoms of GERD, No Major Cardiovascular Symptoms or Complaints and No Major Pulmonary Symptoms or Complaints Cardiac & Pulmonary Exam Cardiac Exam: Normal S1/S2 Heart Sounds Pulmonary Exam: Clear Bilateral Breath Sounds Airway Exam Known Difficult Airway: No Mallampati Class: 3 Mouth Opening: Narrow (< 3cm) Thyromental Distance: Greater than 3 cm Neck Range of Motion: Full ROM Neck Circumference: Thick Teeth Condition: Normal Dentition ASA Classification ASA Score: ASA 3 Emergency Case?: No NPO Status NPO Status: NPO Clears >2 hours, Solids >8 hours Status Status: Negative HCG Anesthesia Plan Resuscitation Status: Full Code Anesthesia Technique: General Anesthesia Airway Planned: Endotracheal Tube Monitors Used: Standard Monitors
[2021-03-19] MEDS: Lactated Ringers 1,000 ML 125 ML IV (07:06)
[2021-03-19] MEDS: ceFAZolin 2,000 MG in Normal Saline 100 ML 200 MG IVPB (07:53)
[2021-03-19] MEDS: Normal Saline 20 ML VIAL (08:10)
--- NOTE | 2021-03-19 08:20 | VAG_PTH ---
PATIENT: Zaida Davies LOC: [facility] U#:[id number] AGE/SX: 30/F ROOM: RE03/19/[address]: Jessica Palma : 1990 BED: DIS: 03/19/2021 SPEC #: [id number] RECD: 03/19/21 12:56 STATUS: BORIS REQ #: [id number] JACKIE: 03/19/21 08:[address]: Jessica Palma DEPT: Surgical Specimen RECD BY: Yi Varela ENTERED: 03/19/21 12:59 SP TYPE: VAG OTHR DR: NIRANJAN Real Tissues: 1 - VAGINAL BIOPSY Procedures: GROSS AND MICRO LEVEL 4 Comments: [id number]
--- NOTE | 2021-03-19 08:56 | W.PM.DSUDISC ---
Discharge Plan Disposition Patient Disposition: HOME Condition: Fair Discharge Details Attending Provider: Jessica Palma Primary Care Provider: Fior Ritter Home Meds and New Rx's Prescriptions: No Action oxycodone-acetaminophen [Percocet] 5-325 mg tablet 1 tab PO Q6H MDD 4 PRN (Reason: pain) Qty: 10 RF: 0 amoxicillin 500 mg tablet 500 mg PO Q12H Qty: 10 RF: 0 meclizine 25 mg tablet 25 mg PO TID PRN (Reason: dizziness) Qty: 90 RF: 0 (DME) oxygen-air delivery systems Device See Rx Instructions .ROUTE .MEDSUPPLY Qty: 1 RF: 0 ibuprofen 600 mg tablet 600 mg PO QID PRN (Reason: pain) Qty: 30 RF: 0 sertraline 50 mg tablet 75 mg PO HS RF: 0 omeprazole 20 mg tablet,delayed release (DR/EC) 20 mg PO HS RF: 0 Discharge Instructions Additional Instructions: Espinal catheter will remain in place and attached to drainage bag until Tuesday03/24/21. On that day you have an appointment with Dr. Pal[facility] at 2pm [facility] to have the catheter removed. An antibiotic prescription for an antibiotic to be taken daily has been called to your pharmacy as well as a prescription for Percocet 5/325mg one tablet every 6 hours as needed for severe pain. Continue to take Ibuprofen 600mg every 6hrs as needed for moderate pain. Stand Alone Forms: Anesthesia Discharge Inst., [facility]SU Post Gynecology Surgery, DSU Espinal Care Instructiions Activity:: Activity as Tolerated Diet:: As Tolerated Discharge Orders Discharge Orders: Discharge Order (Routine); Ordered 03/19/21 Ordered By: Jessica Palma Discharge Data Discharge Date/Time-TO BE ENTERED AT DEPARTURE: 03/19/21 13:52 Discharge Comment: Pt belongings sent home w/ Pt. DS: Diagnosis Discharge Diagnosis (1) Mass of vagina: Status: Chronic (2) H/O vaginal surgery: Status: Acute
--- NOTE | 2021-03-19 08:59 | ROE_ITS ---
Date of service: 03/19/21 Time of Service: 09:00 Operative Note Operative Note DATE OF PROCEDURE: 03/19/21 PRE-OP DIAGNOSIS: Vaginal mass POST-OP DIAGNOSIS: same PROCEDURE: Excision of vaginal mass SURGEON: Franco Huerta ANESTHESIA TYPE: Local By Surgeon and General LMA/ETT Refer to Anesthesia Record PATHOLOGY: other (vaginal mass) COMPLICATIONS: None Patient was transported to: PACU Patient's condition: stable Implants: 16 [place] chris catheter with 10 cc sterile water in balloon Indications: This is a 30-year-old woman who has a history of a vaginal mass that will intermittently fill with fluid and drain vaginally. The fluid from this mass has been cultured and had no bacterial growth. She does not have a history of recurrent urinary tract infections. She presents now for excision of this mass and the procedure that will be performed by Dr. Palma and myself as co-surgeon's. Findings: Midline cystic vaginal mass with opening just lateral to the urethral meatus. The mass was closely adherent to the urethra. Procedure Description: Patient was brought to the operating room on 03/19/2021. She was given preoperative IV antibiotics. After successful induction of general anesthesia, she was placed in the dorsal lithotomy position. Her genitalia and perineum were prepped and draped. A 16 [place] Chris catheter was passed through the urethra into the bladder. The catheter balloon was inflated with 10 cc of sterile water and the catheter was hooked to gravity drainage. The vaginal mass was identified. The [place] dissection fluid containing a 50-50 mix of 1% lidocaine with epinephrine and injectable saline was then injected beneath the vaginal mucosa to help with our dissection. A midline vaginal incision was made and we included a small ellipse of vaginal mucosa overlying where I believed the opening to the urethra was located. We then began our dissection laterally and we were able to shell out the lateral aspects of the mass. The mass did appear to be adherent to but not connected to the urethra. The mass was taken off the urethra using sharp dissection. The mass was then sent to pathology for permanent section. The urethral mucosa at the meatus was reinforced and reapproximated to the vaginal mucosa using simple interrupted 4-0 chromic sutures. There is no evidence of urethral injury in the mid urethra or bladder neck. The vaginal wall closure was then performed by Dr. Palma. Please see Dr. O'Isaias's dictation for additional details of this procedure.
[2021-03-19] MEDS: Ketorolac 30 MG/ML VIAL IVP (10:00)
--- NOTE | 2021-03-19 10:37 | W.ANESPOSTOP ---
Postoperative Evaluation Date, Time and Location Date Performed: 03/19/21 Time Performed: 10:37 Patient Location: Day Surgery Unit Vital Signs Most Recent Imported Vital Signs: Most Recent Vital Signs Temp Pulse Resp BP Pulse Ox 36.2 C L 59 L 20 119/53 L 97 03/19/21 10:08 03/19/21 10:08 03/19/21 10:08 03/19/21 10:08 03/19/21 10:08 Pain Score Most Recent Pain Score: Most Recent Pain Score Pain Level 0 03/19/21 10:08 Assessment Mental Status: Awake (Alert & Oriented to Patient Baseline) Airway and Respiratory Function: Patent airway with normal (patient baseline) respiratory exam Cardiovascular Function: Hemodynamically Stable Hydration Status: Adequately Hydrated Nausea & Vomiting: No Nausea or Vomiting Pain: Pt. Denies Any Pain Peripheral Nerve Block: Patient did not receive a nerve block Postoperative Comments:: Patient informed about possible sore jaw associated with prolonged need for two-hand mask and jaw thrust. Patient verbalized understanding.
--- NOTE | 2021-03-20 07:38 | ROE_ITS ---
Date of service: 03/20/21 Time of Service: 07:38 Operative Note Operative Note DATE OF PROCEDURE: 03/19/21 PRE-OP DIAGNOSIS: suburethral vaginal wall cyst POST-OP DIAGNOSIS: same PROCEDURE: Excision of vaginal wall cyst SURGEON: Jessica Palma ASSISTING SURGEON: Franco Huerta [employer]: Candace Chavez ANESTHESIA TYPE: General LMA/ETT Refer to Anesthesia Record ESTIMATED BLOOD LOSS: 5 PATHOLOGY: other (vaginal cyst wall) COMPLICATIONS: None Patient was transported to: PACU Patient's condition: stable Implants: Espinal catheter to gravity drainage at the completion of the procedure Indications: 30-year-old G3, P2 female with a longstanding vaginal wall cyst that periodically increased or decreased in size secondary to drainage of yellow non-malodorous discharge. Findings: 4x5cm smooth walled cystic structure at the distal vaginal wall directly beneath and distorting the urethral orifice. When pressed there is copious yellow, non-bloody discharge that extrudes from the a pinpoint opening directly beside the urethra. Procedure Description: Patient was taken to the operating room where she was placed in the dorsal supine position and general endotracheal anesthesia was administered without difficulty. 3 g of IV Ancef were administered and SCDs were placed. Surgical timeout was performed. Patient was then draped and prepped in the usual sterile fashion and placed in the dorsal lithotomy position in yellowfin stirrups. Espinal catheter was placed to gravity drainage with clear [place] urine noted. Ileum of the cyst wall was infiltrated with a dilute solution of lidocaine and a vertical skin incision was made midline of the cyst wall. The vaginal epithelium was then dissected off of the cyst wall using combination of blunt technique and Metzenbaum scissors. Care was taken to keep intact the superior vaginal wall fascia and at no time was the urethra incised or exposed. Once the entire cyst had been dissected it was passed off of the operative field. The suburethral tissue was reinforced with interrupted sutures of 4-0 chromic and the space beneath the urethra was reapproximated with a series of [id number] sutures of 0 Vicryl. 2-0 Vicryl was used to reapproximate the vertical vaginal epithelial incision. Espinal catheter was left to gravity drainage patient was placed in the dorsal supine position awakened from anesthesia extubated and transported recovery area in stable condition. All sponge lap, needle counts correct x2.
== END 2021-03-19 13:52 | disposition home or self-care (01) ==
PROVIDERS: PCP Nurse Practitioner Family; Visit Provider Obstetrics & Gynecology Gynecology
PROC: (CPT 56740; principal; 2021-03-19 07:30)
DX: N76.0 Acute vaginitis (principal); N76.1 Subacute and chronic vaginitis; E28.2 Polycystic ovarian syndrome; G47.33 Obstructive sleep apnea (adult) (pediatric); K75.81 Nonalcoholic steatohepatitis (NASH)
CPT/HCPCS: 57135; 81025; 88305; J0131; J0690; J1100; J1885; J2001; J2250; J2405

== ENCOUNTER 2022-11-03 11:30 | Outpatient (REF) | payer MEDICAID, SELFPAY ==
--- NOTE | 2022-11-03 10:40 | PAPFT_PTH ---
PATIENT: Zaida Davies LOC: [facility] U#:[id number] AGE/SX: 32/F ROOM: RE11/03/[address]: Gracie Quintana NP : 1990 BED: DIS: 11/03/2022 SPEC #: [id number] RECD: 11/03/22 12:54 STATUS: [place] REQ #: [id number] JACKIE: 11/03/22 10:[address]: Candace Chavez DEPT: [facility] Cytology RECD BY: Yi Varela ENTERED: 11/03/22 12:55 SP TYPE: PAPFT OT DR: Fior Ritter, OUTSIDE SALES ACCOUNT REPRESENTATIVE Tissues: 1 - CX/ENDOCX FOR PAP SMEARS Procedures: PAP THIN PREP/UVM Screening HPV DNA PROBE Comments: [id number]
== END 2022-11-03 11:31 | disposition home or self-care (01) ==
LOC: LBN 11:30
PROVIDERS: PCP Nurse Practitioner Family; Visit Provider Nurse Practitioner Women's Health
DX: E28.2 Polycystic ovarian syndrome (principal); E78.5 Hyperlipidemia, unspecified; R73.03 Prediabetes; F41.8 Other specified anxiety disorders; Z12.4 Encounter for screening for malignant neoplasm of cervix; Z11.51 Encounter for screening for human papillomavirus (HPV)
CPT/HCPCS: 36415; 80053; 80061; 88142; 83036; 87624

== ENCOUNTER 2023-01-07 11:31 | Outpatient (REF) | payer MEDICAID, SELFPAY ==
--- NOTE | 2023-01-07 09:30 | SKI_PTH ---
PATIENT: Zaida Davies LOC: [facility] U#:[id number] AGE/SX: 32/F ROOM: RE01/07/[address]: NIRANJAN Real : 1990 BED: DIS: 01/07/2023 SPEC #: [id number] RECD: 01/07/23 13:05 STATUS: BORIS REQ #: [id number] JACKIE: 01/07/23 09:[address]: Fior Ritter DEPT: Surgical Specimen RECD BY: Lachelle Rodriguez Tissues: 1 - SKIN CYST/TAG/DEBRIDEMENT Procedures: GROSS AND MICRO LEVEL 3 Comments: [id number]
== END 2023-01-07 11:32 | disposition home or self-care (01) ==
LOC: LBN 11:31
PROVIDERS: PCP Nurse Practitioner Family; Visit Provider Nurse Practitioner Family
DX: L91.8 Other hypertrophic disorders of the skin (principal)
CPT/HCPCS: 88304

== ENCOUNTER 2023-08-02 02:34 | Outpatient (CLI) | payer MEDICAID, SELFPAY ==
[2023-08-02 08:52] LABS: HCT 46.3 % (36.0-46.0); HGB 15.6 g/dL (11.2-15.7); MCH 28.9 pg (27.0-33.0); MCHC 33.7 % (32.0-36.0); MCV 86 fL (80-95); MPV 11.1 fL (8.0-11.0); Platelet Count 277 10^3/uL (130-400); RBC 5.39 10^6/uL (3.93-5.22); RDW 12.7 % (11.7-14.6); RDW-SD 39.3 fL; WBC 7.79 10^3/uL (4.4-10.8)
== END 2023-08-02 02:35 | disposition home or self-care (01) ==
PROVIDERS: PCP Nurse Practitioner Family; Visit Provider Obstetrics & Gynecology
DX: N93.8 Other specified abnormal uterine and vaginal bleeding (principal)
CPT/HCPCS: 36415; 85027

== ENCOUNTER → 2023-11-17 03:09 | Outpatient (CLI) | payer MEDICAID, SELFPAY ==
--- NOTE | 2023-11-17 07:30 | DI.US_ITS ---
Exam(s) US PELVIS TRANSVAGINAL EXAM: US PELVIS TRANSVAGINAL CLINICAL HISTORY: irregular bleeding,ABNL VAGIN BLEEDING,N93.9 TECHNIQUE: Ultrasound of the pelvis was performed both transabdominal and transvaginal. COMPARISON: CT ABD PELVIS WITH CONTRAST from 07/04/2013 US US OB 2-3 trimester from 12/15/2018 FINDINGS: UTERUS: Measures 9.6 cm length x 5 cm AP x 6 cm wide. There are no uterine fibroids. Endometrial thickness measures 6 mm. There is a small solitary hyperechoic focus in the endometrium measuring approximately 2 mm. No flui d in the endometrial canal. Small amount of fluid in the endocervical canal noted. RIGHT OVARY: Measures 4.3 x 3.1 x 2.8 cm No significant cysts nor masses evident in the right ovary. LEFT OVARY: Measures 0.4 x 3.0 x 4.0 cm There is a well-defined uniformly hyperechoic lesion in the right ovary measuring 19 x 15 x 21 mm and is most probably consistent with fatty dermoid. This was also evident on CT scan of July 2013. Minimal increased in size since that time. Other findings in the right ovary are are normal appearin g follicular cysts measuring less than 1 cm. CUL-DE-SAC: No free fluid evident. IMPRESSION: 1. There is a uniformly hyperechoic lesion in the right ovary consistent with previously documented s mall fatty tumor-probable dermoid, as seen on CT scan of 2013. This presently measures 1.9 x 1.5 x 2 .1 cm. No other significant ovarian findings. No free fluid. 2. There is a solitary small hyperechoic focus in the endometrium, probably a polyp. DATA REPOSITORY:
== END ==
PROVIDERS: PCP Nurse Practitioner Family; Visit Provider Obstetrics & Gynecology
DX: N93.8 Other specified abnormal uterine and vaginal bleeding (principal)
CPT/HCPCS: 76830; 76856

== ENCOUNTER 2024-11-21 09:49 | Outpatient (CLI) | payer MEDICAID, SELFPAY ==
[2024-11-21 10:16] LABS: Hemoglobin A1C 5.4 % (<5.7)
[2024-11-21 10:36] LABS: ALT 29 U/L (14-59); AST 20 U/L (15-37); Albumin 3.9 g/dL (3.4-5.0); Alkaline Phosphatase 62 U/L (46-116); BUN 15 mg/dL (7-18); Bilirubin, Total 0.3 mg/dL (0.2-1.0); Calcium 9.4 mg/dL (8.5-10.1); Calculated LDL 120 mg/dL (<100); Chloride 104 mmol/L (98-107); Cholesterol 221 mg/dL (<200); Estimated GFR 74.88 (mL/min/1.73m2); Glucose 86 mg/dL (74-106); HDL Cholesterol 41 mg/dL (>or=50); Potassium 4.1 mmol/L (3.5-5.1); Sodium 140 mmol/L (136-145); Total Protein 7.4 g/dL (6.4-8.2); Triglyceride 304 mg/dL (<150)
== END 2024-11-21 09:50 | disposition home or self-care (01) ==
LOC: LBO 09:49
PROVIDERS: PCP Nurse Practitioner Family; Visit Provider Nurse Practitioner Family
DX: Z00.00 Encounter for general adult medical examination without abnormal findings (principal); E78.5 Hyperlipidemia, unspecified; R73.03 Prediabetes; E66.9 Obesity, unspecified; K21.9 Gastro-esophageal reflux disease without esophagitis; K76.0 Fatty (change of) liver, not elsewhere classified
CPT/HCPCS: 36415; 80053; 80061; 83036

== ENCOUNTER 2025-01-22 01:47 | Outpatient (CLI) | payer MEDICAID, SELFPAY ==
--- NOTE | 2025-01-22 07:00 | DI.US_ITS ---
Exam(s) US PELVIS TRANSVAGINAL EXAM: US PELVIS TRANSVAGINAL CLINICAL HISTORY: abnl uterine bleeding,n93.9 TECHNIQUE: Transabdominal and transvaginal imaging was performed using standard protocol. COMPARISON: CT ABD PELVIS WITH CONTRAST from 07/04/2013 CT ABD PELVIS WITH CONTRAST from 07/04/2013 US US PELVIS TRANSVAGINAL from 11/17/2023 FINDINGS: The transabdominal images are limited by lack of urinary bladder distention. UTERUS: Anteverted. 8.3 x 5.2 x 6.7 cm Endometrium: 12 mm, mildly heterogeneous. Trace amount of fluid. Few hyperechoic foci may represent calcifications. No polyp visible. Myometrium: Unremarkable. Cervix: Unremarkable. OVARIES: Right: Cyst or mass: Dermoid again noted measuring at 2.3 cm. Left: Cyst or mass: None. DOPPLER: Color: Symmetric and uniform flow to both ovaries. No hyperemia. CUL-DE-SAC: Free fluid: None. IMPRESSION: 1. The heterogeneous endometrium. No focal polyp is visible.. 2. Right ovarian dermoid again noted. DATA REPOSITORY:
== END 2025-01-22 02:07 ==
LOC: DI 01:47
PROVIDERS: PCP Nurse Practitioner Family; Visit Provider Obstetrics & Gynecology
DX: N93.9 Abnormal uterine and vaginal bleeding, unspecified (principal)
CPT/HCPCS: 76830; 76856